=== PATIENT | female | born 1960 | race Caucasian/White ===

== ENCOUNTER 2016-10-24 17:03 | Emergency (ER) | payer OTHER | END 2016-10-24 17:34 | disposition home or self-care (01) | LOC: ER 17:03 | DX: T23.162A Burn of first degree of back of left hand, initial encounter (principal); Y27.2XXA Contact with hot fluids, undetermined intent, initial encounter; F17.210 Nicotine dependence, cigarettes, uncomplicated; Z79.899 Other long term (current) drug therapy; Z88.8 Allergy status to other drugs, medicaments and biological substances ==